=== PATIENT | male | born 1955 | race Caucasian/White ===

== ENCOUNTER 2018-12-05 11:07 | Emergency (ER) | payer OTHER ==
[2018-12-05] MEDS: ONDANSETRON (ODT) 4 MG TAB ODT ×2 (12:57→13:09)
[2018-12-05] MEDS: HYDROCODONE/APAP (5/325) TAB PO ×3 (12:58→13:09)
== END 2018-12-05 13:00 | disposition home or self-care (01) ==
LOC: FTE 11:07
DX: L02.811 Cutaneous abscess of head [any part, except face] (principal); F17.210 Nicotine dependence, cigarettes, uncomplicated
CPT/HCPCS: 99283; Z7502

== ENCOUNTER 2019-03-30 22:39 | Emergency (ER) | payer OTHER ==
[2019-03-30] MEDS: SODIUM CHLORIDE 0.9% 1L BAG IV* (23:45)
[2019-03-30] MEDS: KETOROLAC 30 MG INJ IV (23:45)
[2019-03-30] MEDS: CLINDAMYCIN 900 MG (PMX) 50 ML IVPB (23:47)
[2019-03-30 23:56] LABS: ADD MAN DIFF? NO
[2019-03-30 23:58] LABS: BASOPHIL # 0.1 10^3/ul (0.0-0.1); BASOPHILS % 0.7 % (0.0-2.0); EOSINOPHILS # 0.1 10^3/ul (0.0-0.5); EOSINOPHILS % 0.9 % (0.0-7.0); HEMATOCRIT 42.5 % (42.0-52.0); LYMPHOCYTES # 1.8 10^3/ul (0.8-2.9); LYMPHOCYTES % 18.6 % (15.0-51.0); MEAN CORPUSCULAR HEMOGLOBIN 30.8 pg (29.0-33.0); MEAN CORPUSCULAR HGB CONC 32.9 g/dl (32.0-37.0); MEAN CORPUSCULAR VOLUME 93.6 fl (82.0-101.0); MEAN PLATELET VOLUME 9.1 fl (7.4-10.4); MONOCYTE # 1.3 10^3/ul (0.3-0.9); MONOCYTES % 13.1 % (0.0-11.0); NEUTROPHIL # 6.6 10^3/ul (1.6-7.5); NEUTROPHILS % 66.4 % (39.0-77.0); PLATELET COUNT 265 10^3/UL (140-415); RED BLOOD COUNT 4.54 10^6/ul (4.70-6.10); RED CELL DISTRIBUTION WIDTH 12.7 % (11.5-14.5)
[2019-03-30 23:58] LABS: WHITE BLOOD COUNT 9.9 10^3/ul (4.8-10.8)
[2019-03-31 00:06] LABS: ALANINE AMINOTRANSFERASE 84 IU/L (13-69); ALBUMIN 4.4 g/dl (3.3-4.9); ALBUMIN/GLOBULIN RATIO 0.93; ALKALINE PHOSPHATASE 74 IU/L (42-121); ANION GAP 10 (5-13); ASPARTATE AMINO TRANSFERASE 103 IU/L (15-46); BILIRUBIN,INDIRECT 0.8 mg/dl (0-1.1); BILIRUBIN,TOTAL 0.8 mg/dl (0.2-1.3); BLOOD UREA NITROGEN 17 mg/dl (7-20); CALCIUM 9.4 mg/dl (8.4-10.2); CARBON DIOXIDE 27 mmol/L (21-31); CHLORIDE 98 mmol/L (97-110); CREATININE 0.86 mg/dl (0.61-1.24); Estimated GFR > 60 mL/min (>60); GLUCOSE 109 mg/dl (70-220); POTASSIUM 4.3 mmol/L (3.5-5.1); SODIUM 135 mmol/L (135-144); TOTAL PROTEIN 9.1 g/dl (6.1-8.1)
== END 2019-03-31 00:46 | disposition home or self-care (01) ==
LOC: E/R 22:39
DX: L03.114 Cellulitis of left upper limb (principal); F15.90 Other stimulant use, unspecified, uncomplicated; F17.210 Nicotine dependence, cigarettes, uncomplicated; M79.642 Pain in left hand
CPT/HCPCS: 36415; 80053; 83605; 85025; 87040-91; 93005; 96374; 96375; 99284-25